=== PATIENT | female | born 1950 | race Hispanic/Latino ===

== ENCOUNTER 2018-04-24 09:20 | Outpatient (CLI) | payer MEDICARE ==
--- NOTE | 2018-04-24 12:33 | BD ---
DEXA SCAN: INDICATIONS: Osteoporosis screening. FINDINGS: LUMBAR SPINE BMD (g/cm2) T-SCORE Z-SCORE L1 0.786 -1.9 -0.2 L2 0.948 -0.7 1.2 L3 1.013 -0.6 1.4 L4 1.019 -0.4 1.7 L1-L4 0.948 -0.9 1.0 LEFT FEMORAL NECK 0.632 -2.0 -0.5 LEFT TOTAL HIP 0.984 0.3 1.4 The FRAX-WHO Fracture Risk Assessment Tool estimates the 10 year fracture risk for a major osteoporot ic fracture for this patient is 5.5% and for a hip fracture is 0.8%. IMPRESSION: Based on the World Health Organization (WHO) criteria, the patient's bone mineral density is osteopen ic. The patient is at moderate risk for fracture. POS: [facility]
== END 2018-04-24 09:21 | disposition home or self-care (01) ==
LOC: BICMAMMO 09:20
PROVIDERS: ATTEND Nurse Practitioner Family
DX: Z12.31 Encounter for screening mammogram for malignant neoplasm of breast (principal); M81.0 Age-related osteoporosis without current pathological fracture; M85.80 Other specified disorders of bone density and structure, unspecified site
CPT/HCPCS: 77063; 77067; 77080

== ENCOUNTER 2018-06-27 12:23 | Outpatient (CLI) | payer MEDICARE ==
--- NOTE | 2018-06-27 13:11 | RAD ---
TWO VIEW CHEST: History: Productive cough for three weeks. FINDINGS: Lungs are clear. No effusion or pneumothorax. Cardiac silhouette is normal in size. There is mild vas cular calcification. IMPRESSION: No focal consolidation. POS: [facility]
== END 2018-06-27 12:24 | disposition home or self-care (01) ==
LOC: SCSRAD 12:23
PROVIDERS: ATTEND Nurse Practitioner Family
DX: R05 Cough (principal)
CPT/HCPCS: 71046